=== PATIENT | male | born 1960 | race Caucasian/White ===

== ENCOUNTER 2017-11-02 02:43 | Outpatient (CLI) | payer OTHER | END 2017-11-02 02:44 | disposition home or self-care (01) | LOC: BICMRI 02:43 | PROVIDERS: ATTEND Orthopaedic Surgery | DX: M25.511 Pain in right shoulder (principal); M75.101 Unspecified rotator cuff tear or rupture of right shoulder, not specified as traumatic ==

== ENCOUNTER 2019-10-20 13:39 | Outpatient (CLI) | payer OTHER ==
--- NOTE | 2019-10-20 14:11 | RAD ---
Exam:3 views left shoulder HISTORY: Pain COMPARISON: None FINDINGS: Glenohumeral joint space is preserved. No fracture or dislocation. Minimal sclerosis of the greater tuberosity. IMPRESSION: Minimal sclerosis the greater tuberosity. Correlate for rotator cuff tendinopathy.
--- NOTE | 2019-10-20 14:12 | RAD ---
Exam:Right shoulder 3 views HISTORY: Pain COMPARISON: None FINDINGS: Glenohumeral joint space is preserved. No fracture or dislocation. There is mild irregularity involving the inferior bony glenoid. Sclerosis of the greater tuberosity. IMPRESSION: Degenerative changes involving the bony glenoid and greater tuberosity. Correlate clinica lly.
== END 2019-10-20 13:40 | disposition home or self-care (01) ==
LOC: BICRAD 13:39
PROVIDERS: ATTEND Internal Medicine Rheumatology
DX: M25.511 Pain in right shoulder (principal); M25.512 Pain in left shoulder; M19.011 Primary osteoarthritis, right shoulder; M25.812 Other specified joint disorders, left shoulder

== ENCOUNTER 2020-05-07 06:32 | Outpatient (CLI) | payer OTHER ==
[2020-05-07 14:17] LABS: #Eosinphils 0.3 thou/uL (0.0-0.7); #Lymphocytes 1.9 thou/uL (1.20-3.40); #Monocytes 0.7 thou/uL (0.11-0.59); %Basophils 0.4 % (0.0-1.0); %Eosinophils 3.3 % (0.0-10.0); %Lymphocytes 23.7 % (21.0-51.0); %Monocytes 8.4 % (0.0-10.0); %Neutrophils 64.1 % (42.0-75.0); Hemoglobin 14.7 g/dL (14.0-18.0); Mean Corpuscular HGB CONC 33.5 g/dL (32.0-36.0); Mean Corpuscular Hemoglobin 32.2 pg (27.0-31.0); Mean Corpuscular Volume 95.9 fL (78.0-98.0); Mean Platelet Volume 9.9 fL (7.4-10.4); Platelet Count 161 thou/uL (130-400); RBC Distribution Width 11.7 % (11.5-14.5); Red Blood Cell (RBC) Count 4.57 mill/uL (4.70-6.10); White Blood Cell (WBC) Count 7.9 thou/uL (4.8-10.8)
[2020-05-07 14:54] LABS: Anion Gap 12 mmol/L (10-20); BUN (Urea Nitrogen) 22 mg/dL (8.4-25.7); Calc. Creatinine Clearance 0 mL/min (70-130); Calcium 9.3 mg/dL (7.8-10.44); Carbon Dioxide 26 mmol/L (23-31); Chloride 105 mmol/L (98-107); Estimated GFR-MDRD 67; Glucose 89 mg/dL (80-115); Potassium 3.9 mmol/L (3.5-5.1); Sodium 139 mmol/L (136-145)
== END 2020-05-07 06:33 | disposition home or self-care (01) ==
LOC: LABBT 06:32
PROVIDERS: ATTEND Orthopaedic Surgery
DX: Z01.812 Encounter for preprocedural laboratory examination (principal); Z11.59 Encounter for screening for other viral diseases; M75.101 Unspecified rotator cuff tear or rupture of right shoulder, not specified as traumatic; M19.011 Primary osteoarthritis, right shoulder
CPT/HCPCS: 80048; 85025; 87635; U0003

== ENCOUNTER 2020-05-09 07:45 | Day surgery (SDC) | payer OTHER ==
[2020-05-07 09:32] VITALS: BMI 35.9
[2020-05-09] MEDS ORDERED: Midazolam HCl 2 mg/2 ml Vial ONE (08:12)
[2020-05-09] MEDS ORDERED: Fentanyl 100 MCG/2 ML VIAL ONE ×4 (08:12→12:50)
[2020-05-09] MEDS ORDERED: Levofloxacin 500 mg/D5W 100 ml Premix Bag ONE (08:46)
[2020-05-09] MEDS ORDERED: traMADol HCl 50 MG TAB PO PRN ×2 (10:10)
[2020-05-09] MEDS ORDERED: Ropivacaine 0.2% 550 ML 550 ML NERVE BLCK SCH (10:10)
[2020-05-09] MEDS ORDERED: Zolpidem Tartrate 5 MG TAB PO PRN (10:10)
[2020-05-09] MEDS ORDERED: Promethazine HCl 25 MG/ML VIAL IM PRN (10:10)
[2020-05-09] MEDS ORDERED: Ondansetron PF 4 MG/2 ML Vial IVP PRN (10:10)
[2020-05-09] MEDS ORDERED: HYDROcodone/Acetaminophen 5/325 mg Tablet PO PRN ×2 (10:10)
[2020-05-09] MEDS ORDERED: Fentanyl 100 MCG/2 ML VIAL SLOW IVP PRN (10:11)
[2020-05-09] MEDS ORDERED: Ketorolac Tromethamine 30 MG/ML VIAL IVP SCH (12:00)
[2020-05-09] MEDS ORDERED: Ropivacaine 0.2% HCl/PF (40 MG/20 ML VIAL) ONE (12:17)
[2020-05-09] MEDS ORDERED: Ropivacaine 0.5% HCl/PF (150 MG/30 ML VIAL) ONE (12:17)
[2020-05-09] MEDS ORDERED: Rocuronium Bromide 10 MG/ML (10ML VIAL) ONE (12:17)
[2020-05-09] MEDS ORDERED: Ondansetron PF 4 MG/2 ML Vial ONE (12:17)
[2020-05-09] MEDS ORDERED: Dexamethasone 20 MG/5 ML VIAL ONE (12:17)
[2020-05-09] MEDS ORDERED: Ketorolac Tromethamine 30 MG/ML VIAL ONE (12:17)
[2020-05-09] MEDS ORDERED: PROPOFOL 200 MG/20 ML VIAL ONE (12:17)
[2020-05-09] MEDS ORDERED: Bupivacaine HCl 0.5%/Epinephrine 1:200,000/PF 30 ml Vial ONE (12:17)
--- NOTE | 2020-05-09 13:39 | OP ---
DATE OF PROCEDURE: 05/09/2020 PREOPERATIVE DIAGNOSES: 1. Large supraspinatus and infraspinatus [id number] rotator cuff tear. 2. Osteoarthritis of acromioclavicular joint with acromial spurring. 3. Biceps tendinosis, subluxation, instability. POSTOPERATIVE DIAGNOSES: 1. Large supraspinatus and infraspinatus [id number] rotator cuff tear. 2. Osteoarthritis of acromioclavicular joint with acromial spurring. 3. Biceps tendinosis, subluxation, instability. PROCEDURES PERFORMED: Open acromioplasty, proximal biceps tenodesis, and primary open repair of rotator cuff tear to include supraspinatus and infraspinatus tendon with double-row technique. GEAR TOOTH LAPPING MACHINE OPERATOR: Layton Chao PA-C ANESTHESIA: General via endotracheal tube augmented with indwelling interscalene block on the right. COMPONENTS USED: Arthrex metallic 5.5 suture anchor x3 double arm with 8 x 23 biceps tenodesis screw and suture anchor x2 SwiveLock for double row. ESTIMATED BLOOD LOSS: 50 mL. DRAINS: None. SPECIMENS: None. COMPLICATIONS: None. COUNTS: Correct. INDICATION FOR SURGERY: Dinesh is a 59-year-old white male, who has had right shoulder pain implied with overhead use after he had heard an abrupt tear and pull in the right shoulder about a month and a half ago. After MRI was performed, he has elected to proceed with acromioplasty, biceps tenodesis, and primary rotator cuff repair as definitive treatment of his pain and weakness. DESCRIPTION OF PROCEDURE: After informed consent was obtained in the preop holding area, the patient was taken to the operative suite where he received preoperative antibiotics. General anesthesia was induced and LMA was placed and secured. Once this was accomplished, the patient was positioned appropriately in the modified beach-chair position. The right shoulder was then prepped and draped in the usual sterile fashion. Prior to incision, a time-out was called. All members of surgical team agreed upon site, surgeon, and patient. Once this was completed, we used a standard lateral approach to access the acromion as well as the supraspinatus and infraspinatus tendons. Bovie electrocautery was then used to remove the anterior deltoid and middle deltoid from the acromion and a mid deltoid split was then carried out. We identified the joint space and copious joint fluid was encountered medially. We then performed a complete bursectomy for visualization as well as an acromioplasty using the half-inch right osteotome and rongeur and rasping. After this was completed, we then identified the large rotator cuff tear, which was not retracted and still appeared to be in place and quite mobilized. We then used a series of rongeurs to complete the tear and freshened up the edges and remove cartilage at the interface of the chondral cartilage and old rotator cuff insertion working from front to back. We then turned our attention to reflection of the biceps tendon, which was cut inside the joint using curved Marroquin scissors and we then reflected open the biceps groove, used the pin with over-ream of 8 mm and the 8 mm biceps tenodesis screw provided the Arthrex to anchor the proximal biceps in the bicipital groove. We then after freshening up the rotator cuff insertion, placed 3 double-arm 5.5 metallic suture anchors. These were oversewn through the cuff using a Corey-Jones technique and tied over the top using tissue bridge and then we used in a double-row footprint to establish the secondary fixation laterally using the suture anchor SwiveLock x2. Primary repair was accomplished with vascular repair of the anterior deltoid and middle deltoid to the acromion and this was accomplished with #1 Ethibond with transosseous stitches through the acromion. This was augmented with a #5 Ethibond x1. We then used 0 Vicryl to run the deltoid muscular split. Subcutaneous layer was accomplished with inverted simple 0 Vicryl stitches and subcuticular layer was closed with 2-0 inverted simple Vicryl stitches. Stainless steel marcial were used to reapproximate the skin. Sterile dressing was applied. Procedure was terminated without complication. The patient was awakened in the operative suite, LMA was removed, and he was taken to recovery room in stable condition. A sling was placed and he will be on restrictions of the right. All counts were correct. Job ID: [id number]
[2020-05-09] MEDS ORDERED: Promethazine HCl 25 MG/ML VIAL ONE (14:19)
== END 2020-05-09 17:42 | disposition home or self-care (01) ==
LOC: SDC 07:45
PROVIDERS: ATTEND Orthopaedic Surgery
DX: S46.011A Strain of muscle(s) and tendon(s) of the rotator cuff of right shoulder, initial encounter (principal); M19.011 Primary osteoarthritis, right shoulder; M75.21 Bicipital tendinitis, right shoulder; S43.081A Other subluxation of right shoulder joint, initial encounter; M25.311 Other instability, right shoulder; G89.18 Other acute postprocedural pain; I10 Essential (primary) hypertension; E78.5 Hyperlipidemia, unspecified; N40.0 Benign prostatic hyperplasia without lower urinary tract symptoms; M17.0 Bilateral primary osteoarthritis of knee; J45.909 Unspecified asthma, uncomplicated; N40.1 Benign prostatic hyperplasia with lower urinary tract symptoms; N13.8 Other obstructive and reflux uropathy; R39.12 Poor urinary stream; Z79.899 Other long term (current) drug therapy; Z88.0 Allergy status to penicillin; Z88.5 Allergy status to narcotic agent; X50.9XXA Other and unspecified overexertion or strenuous movements or postures, initial encounter
CPT/HCPCS: A4306; C1713; J0670; J1100; J1885; J1956; J2250; J2405; J2550; J2704; J2795; J3010; J3370; J7030

== ENCOUNTER 2020-05-11 11:30 | Inpatient (IN) | payer OTHER ==
--- NOTE | 2020-05-11 11:57 | RAD ---
CHEST 1 VIEW PORTABLE: HISTORY: Dyspnea, shortness of breath. COMPARISON: 03/11/2015. FINDINGS: Less than optimal inspiration with mild vascular crowding and increased linear and interstitial natasha ngs bilaterally in the perihilar regions and right lower lung zone with mild right hemidiaphragm elev ation. These findings are nonspecific and could represent some minimal subsegmental atelectasis and less overall inspiratory effort. No confluent pneumonia, pleural effusion, or other acute process. IMPRESSION: Minimal increased linear and interstitial markings bilaterally including the right base with mild rig ht hemidiaphragm elevation and possibly minimal subsegmental atelectasis. No confluent pneumonia, ov ert edema, pleural effusion, or other acute process. POS: RRE
[2020-05-11 13:21] LABS: #Basophils 0.1 thou/uL (0.0-0.2); #Eosinphils 0.1 thou/uL (0.0-0.7); #Lymphocytes 1.9 thou/uL (1.20-3.40); #Monocytes 0.9 thou/uL (0.11-0.59); #Neutrophils 7.8 thou/uL (1.40-6.50); %Basophils 0.7 % (0.0-1.0); %Lymphocytes 17.7 % (21.0-51.0); %Neutrophils 72.7 % (42.0-75.0); Hemoglobin 13.1 g/dL (14.0-18.0); Mean Corpuscular HGB CONC 33.4 g/dL (32.0-36.0); Mean Corpuscular Hemoglobin 32.6 pg (27.0-31.0); Mean Corpuscular Volume 97.3 fL (78.0-98.0); Mean Platelet Volume 9.6 fL (7.4-10.4); Platelet Count 132 thou/uL (130-400); RBC Distribution Width 11.9 % (11.5-14.5); Red Blood Cell (RBC) Count 4.04 mill/uL (4.70-6.10); White Blood Cell (WBC) Count 10.8 thou/uL (4.8-10.8)
[2020-05-11 13:43] LABS: ALT (SGPT) 32 U/L (8-55); AST (SGOT) 20 U/L (5-34); Albumin 3.7 g/dL (3.4-4.8); Alkaline Phosphatase 55 U/L (40-110); Anion Gap 10 mmol/L (10-20); BUN (Urea Nitrogen) 10 mg/dL (8.4-25.7); Bilirubin, Total 0.9 mg/dL (0.2-1.2); Calc. Creatinine Clearance 0 mL/min (70-130); Carbon Dioxide 31 mmol/L (23-31); Chloride 103 mmol/L (98-107); Estimated GFR-MDRD Greater than 90; Globulin 2.7 g/dL (2.4-3.5); Glucose 107 mg/dL (80-115); Potassium 3.7 mmol/L (3.5-5.1); Protein, Total 6.4 g/dL (5.8-8.1); Sodium 140 mmol/L (136-145)
--- NOTE | 2020-05-11 14:23 | CT ---
Exam: CT angiogram of the chest HISTORY: Chest pain. Hypertension and asthma. COMPARISON: None TECHNIQUE: CT angiogram of the chest is performed in the axial plane. Three-dimensional reformatted i mages are submitted for interpretation FINDINGS: Mediastinum: No mass, lymphadenopathy or hematoma. HEART: Normal size. No significant pericardial fluid. There are coronary calcifications Aorta: No aneurysm or dissection Upper solid abdominal viscera: Hypoattenuation liver suggesting hepatic steatosis. Trachea and central bronchi: Patent Pleural spaces: No effusion Lung parenchyma: Diminished lung volumes. Consolidation of the right lower lobe may represent atelect asis, aspiration or pneumonia. Additional patchy groundglass opacities throughout the lung parenchyma may be due to edema. Linear densities in the right upper lobe may represent subsegmental a telectasis or scar. Pneumothorax: None Osseous structures: No lytic or blastic lesions Pulmonary arteries: Adequate contrast opacification pulmonary arterial system to the level of segment al arteries. No filling defect to suggest pulmonary embolism IMPRESSION: 1. No evidence of pulmonary artery embolism to the level of segmental arteries 2. Consolidation in the right lower lobe may represent atelectasis, pneumonia or aspiration. 3. Scattered nonspecific groundglass opacities. Correlate for edema. Possible scar or atelectasis in the right upper lobe.
[2020-05-11] MEDS ORDERED: Ondansetron PF 4 MG/2 ML Vial ONE (14:36)
[2020-05-11] MEDS ORDERED: HYDROcodone/Acetaminophen 10/325 mg Tablet ONE (14:57)
[2020-05-11] MEDS ORDERED: Cefepime 2 GM VIAL ONE (14:58)
[2020-05-11] MEDS ORDERED: Vancomycin 1.5 GRAM/300 ML BAG 1.5 GM in Premix Bag 1 BAG IVPB SCH (15:15)
[2020-05-11 16:44] VITALS: BMI 33.9
[2020-05-11] MEDS ORDERED: HYDROcodone/Acetaminophen 5/325 mg Tablet PO PRN (17:06)
[2020-05-11] MEDS: Lactinex Tablet PO SCH (17:15)
[2020-05-11] MEDS ORDERED: HYDROcodone/Acetaminophen 10/325 mg Tablet PO PRN (17:55)
[2020-05-11] MEDS: Mometasone 200 MCG/Formoterol 5 MCG 120 PUFF INHALER INH SCH (18:41)
--- NOTE | 2020-05-11 20:59 | HP ---
CHIEF COMPLAINT: Shortness of breath. HISTORY OF PRESENT ILLNESS: The patient is a 59-year-old male with past medical history of hypertension and asthma who recently underwent right rotator cuff repair 2 days ago. The patient tolerated the procedure well, and had an episode of nausea and vomiting in the recovery stage. The patient has improved afterwards and was discharged home. At home, the patient started to experience increasing shortness of breath starting yesterday. His family checked his oxygenation and was found to be as low at 76%. He was brought to the ER, where imaging studies revealed right lower lobe infiltrate. REVIEW OF SYSTEMS: Negative except as noted in HPI. PAST MEDICAL HISTORY: Hypertension, asthma, hypercholesterolemia. PAST SURGICAL HISTORY: Rotator cuff surgery, back surgery, knee surgery, and carpal tunnel surgery. PHYSICAL EXAMINATION: GENERAL: The patient is alert and oriented x3. HEENT: Head is normocephalic and atraumatic. Extraocular muscles are intact. NECK: Supple. CHEST: Auscultation reveals crackles at the right base. CARDIOVASCULAR: Revealed normal S1, S2. No murmurs, rubs, or gallops. Regular rate and rhythm. NEUROLOGICAL: Unremarkable. ASSESSMENT: 1. Acute hypoxic respiratory failure. 2. Aspiration pneumonia. PLAN: 1. The patient will be admitted to the medical floor. He will be started on IV clindamycin q.8 hours for aspiration pneumonia. Of note, the patient is allergic to penicillin. 2. We will supplement with probiotics to help decrease risk of C. diff. 3. Monitor the patient's response and oxygenation. Job ID: [id number] MTDD
[2020-05-11] MEDS: CeleCOXIB 100 MG CAP PO SCH (21:23)
[2020-05-11] MEDS: Tamsulosin HCl 0.4 MG CAP PO SCH (21:23)
[2020-05-11] MEDS: Clindamycin/D5W 900 MG in Premix Bag 1 BAG IVPB SCH (21:28)
[2020-05-11] MEDS: HYDROcodone/Acetaminophen 10/325 mg Tablet PO PRN (23:53)
[2020-05-12 05:40] LABS: #Basophils 0.1 thou/uL (0.0-0.2); #Eosinphils 0.3 thou/uL (0.0-0.7); #Lymphocytes 2.2 thou/uL (1.20-3.40); #Monocytes 0.8 thou/uL (0.11-0.59); #Neutrophils 5.6 thou/uL (1.40-6.50); %Basophils 0.6 % (0.0-1.0); %Eosinophils 3.3 % (0.0-10.0); %Lymphocytes 24.5 % (21.0-51.0); %Monocytes 8.4 % (0.0-10.0); %Neutrophils 63.1 % (42.0-75.0); Hemoglobin 12.5 g/dL (14.0-18.0); Mean Corpuscular HGB CONC 31.9 g/dL (32.0-36.0); Mean Corpuscular Hemoglobin 31.3 pg (27.0-31.0); Mean Corpuscular Volume 97.9 fL (78.0-98.0); Mean Platelet Volume 9.8 fL (7.4-10.4); Platelet Count 135 thou/uL (130-400); RBC Distribution Width 11.8 % (11.5-14.5); Red Blood Cell (RBC) Count 3.98 mill/uL (4.70-6.10); White Blood Cell (WBC) Count 8.9 thou/uL (4.8-10.8)
[2020-05-12] MEDS: HYDROcodone/Acetaminophen 10/325 mg Tablet PO PRN (05:45)
[2020-05-12] MEDS: Clindamycin/D5W 900 MG in Premix Bag 1 BAG IVPB SCH (05:45)
[2020-05-12 06:03] LABS: Anion Gap 12 mmol/L (10-20); BUN (Urea Nitrogen) 11 mg/dL (8.4-25.7); Calc. Creatinine Clearance 148 mL/min (70-130); Calcium 8.8 mg/dL (7.8-10.44); Carbon Dioxide 28 mmol/L (23-31); Chloride 101 mmol/L (98-107); Estimated GFR-MDRD Greater than 90; Glucose 106 mg/dL (80-115); Potassium 3.5 mmol/L (3.5-5.1); Sodium 137 mmol/L (136-145)
[2020-05-12] MEDS: Mometasone 200 MCG/Formoterol 5 MCG 120 PUFF INHALER INH SCH (07:04)
[2020-05-12 07:45] VITALS: BP 130/71; TEMP 97.5
[2020-05-12] MEDS: Lactinex Tablet PO SCH (08:00)
[2020-05-12] MEDS ORDERED: Ondansetron PF 4 MG/2 ML Vial IVP SCH (09:00)
[2020-05-12] MEDS ORDERED: Hydrochlorothiazide 25 MG TAB PO SCH (09:00)
[2020-05-12] MEDS ORDERED: Atorvastatin Calcium 10 MG TAB PO SCH (09:00)
[2020-05-12] MEDS ORDERED: Multivit, Therapeutic 1 TAB PO SCH (09:00)
[2020-05-12] MEDS ORDERED: Montelukast Sodium 10 mg Tablet PO SCH (09:00)
[2020-05-12] MEDS ORDERED: Enoxaparin Sodium 40 MG/0.4 ML SYRINGE SC SCH (09:00)
[2020-05-12] MEDS ORDERED: Losartan 25 MG TAB PO SCH (09:00)
[2020-05-12] MEDS ORDERED: Amlodipine 10 MG TAB PO SCH (09:00)
[2020-05-12] MEDS: CeleCOXIB 100 MG CAP PO SCH (10:00)
[2020-05-12] MEDS: Tamsulosin HCl 0.4 MG CAP PO SCH (10:00)
--- NOTE | 2020-05-13 07:19 | DIS ---
DATE OF ADMISSION: 05/11/2020 DATE OF DISCHARGE: 05/12/2020 DISCHARGE DIAGNOSES: 1. Acute respiratory failure with hypoxia. 2. Aspiration pneumonia. DISCHARGE MEDICATIONS: 1. Clindamycin 450 mg orally q.6 hours for 5 days. 2. Lactobacillus one tablet t.i.d. with meals for 7 days. 3. Amlodipine 5 mg orally daily. 4. Atorvastatin 10 mg orally daily. 5. Symbicort 160/4.5 mg inhaled twice daily. 6. Celebrex 200 mg orally twice daily as needed for pain. 7. Hydrochlorothiazide 25 mg orally daily. 8. Losartan 100 mg orally daily. 9. Singulair 10 mg orally daily. 10. Tamsulosin 0.4 mg orally twice daily. 11. Hydrocodone 10 q.6 hours as needed for pain. HISTORY OF PRESENT ILLNESS AND HOSPITAL COURSE: The patient is a 59-year-old male with past medical history of hypertension and asthma, who recently underwent a rotator cuff repair 2 days ago. He tolerated the procedure well, but had an episode of vomiting afterwards. He returned home and started experiencing shortness of breath on the day after the procedure. He returned to the ER, where a CT scan of the chest revealed right lower lobe pneumonia suggesting aspiration. He was also found to be hypoxic. Admitted to the hospital and started on IV clindamycin and supplemental oxygen. His symptoms improved within 24 hours and he was able to maintain his oxygen saturations on room air. The patient will be discharged on a course of clindamycin. Job ID: [id number]
== END 2020-05-12 11:01 | disposition home or self-care (01) | DRG 177 ==
LOC: ERS 11:30 → T4-A 16:28
PROVIDERS: ADMIT Internal Medicine; ATTEND Internal Medicine
DX: J69.0 Pneumonitis due to inhalation of food and vomit (principal); J96.01 Acute respiratory failure with hypoxia; I10 Essential (primary) hypertension; J45.909 Unspecified asthma, uncomplicated; E78.00 Pure hypercholesterolemia, unspecified; Z79.51 Long term (current) use of inhaled steroids; Z79.899 Other long term (current) drug therapy; Z88.0 Allergy status to penicillin
CPT/HCPCS: 36415; 71045; 71275; 80048; 80053; 83880; 84484; 85025; 93005; 96365; A4306; C1713; J0670; J0692; J1100; J1885; J1956; J2250; J2405; J2550; J2704; J2795; J3010; J3370; J3490; J7030

== ENCOUNTER 2023-09-16 11:04 | Outpatient (CLI) | payer OTHER ==
[2023-09-16 11:49] LABS: Bilirubin Neg (Negative); Blood, Urine Negative (Negative); Glucose, Urine (Dipstick) Normal (Negative); Ketone, Urine Negative (Negative); Leukocyte Negative (Negative); Nitrite Negative (Negative); Protein, Urine (Dipstick) Negative (Neg-Trace); Urobilinogen Normal mg/dL (Less than 2)
[2023-09-16 11:50] LABS: Clarity Clear (Clear)
[2023-09-16 11:55] LABS: Bacteria/HPF None Seen HPF (None Seen); RBC/HPF None Seen HPF (0-3); Squamous Epithelial 0-3 HPF (0-3); WBC/HPF None Seen HPF (0-3)
[2023-09-16 12:47] LABS: Hemoglobin 14.3 g/dL (13.5-17.5); Mean Corpuscular Volume 91.1 fl (81.2-95.1); Mean Platelet Volume 11.6 fl (7.4-10.4); Platelet Count 165 10x3/uL (150-450); RBC Distribution Width 12.6 % (11.5-14.5); Red Blood Cell (RBC) Count 4.61 10x6/uL (4.32-5.72); White Blood Cell (WBC) Count 6.8 10x3/uL (3.5-10.5)
[2023-09-16 12:54] LABS: PTT 26.1 sec (22.0-33.0); Prothrombin Time 10.9 sec (9.5-12.1)
[2023-09-16 12:58] LABS: Anion Gap 14 mmol/L (10-20); BUN (Urea Nitrogen) 11 mg/dL (8.4-25.7); Calc. Creatinine Clearance 0 mL/min (70-130); Calcium 9.1 mg/dL (7.8-10.44); Carbon Dioxide 24 mmol/L (23-31); Chloride 106 mmol/L (98-107); Estimated GFR 77; Glucose 79 mg/dL (80-115); Potassium 3.5 mmol/L (3.5-5.1); Sodium 140 mmol/L (136-145)
== END 2023-09-16 11:05 | disposition home or self-care (01) ==
LOC: LABBT 11:04
PROVIDERS: ATTEND Urology
DX: Z01.818 Encounter for other preprocedural examination (principal); Z12.5 Encounter for screening for malignant neoplasm of prostate; I48.91 Unspecified atrial fibrillation; D30.3 Benign neoplasm of bladder; N40.1 Benign prostatic hyperplasia with lower urinary tract symptoms; R35.0 Frequency of micturition
CPT/HCPCS: 80048; 81001; 85027; 85610; 85730; 87086; 93005; 93010

== ENCOUNTER 2023-09-17 09:51 | Outpatient (CLI) | payer OTHER | END 2023-09-17 09:52 | disposition home or self-care (01) | LOC: RAD 09:51 | PROVIDERS: ATTEND Otolaryngology Plastic Surgery within the Head & Neck | DX: R13.12 Dysphagia, oropharyngeal phase (principal); R63.30 Feeding difficulties, unspecified | CPT/HCPCS: 74220; 74230 ==

== ENCOUNTER 2023-09-22 06:11 | Day surgery (SDC) | payer OTHER ==
[2023-09-17 09:09] VITALS: BMI 36.9
[2023-09-22] MEDS ORDERED: LevoFLOXacin 500 mg/D5W 100 ML BAG ONE (06:23)
[2023-09-22] MEDS ORDERED: Midazolam HCl 2 mg/2 ml Vial ONE (07:07)
[2023-09-22] MEDS ORDERED: Lidocaine 1% PF 5 ML VIAL ONE (07:41)
[2023-09-22] MEDS ORDERED: PROPOFOL 200 MG/20 ML VIAL ONE (07:41)
[2023-09-22] MEDS ORDERED: fentaNYL 50 mcg/mL 1 mL Vial ONE ×4 (08:23→09:14)
[2023-09-22] MEDS ORDERED: Hyoscyamine SL 0.125 MG TAB ONE (08:25)
[2023-09-22] MEDS ORDERED: Meperidine HCl/PF 25 MG/ML VIAL ONE (09:34)
[2023-09-22] MEDS ORDERED: Oxybutynin 5 MG TAB ONE (14:43)
[2023-09-22] MEDS ORDERED: HYDROcodone/Acetaminophen 5/325 mg Tablet ONE (14:43)
[2023-09-22] MEDS ORDERED: Phenazopyridine HCl 100 MG TAB ONE (14:43)
== END 2023-09-22 15:45 | disposition home or self-care (01) ==
LOC: SDC 06:11
PROVIDERS: ATTEND Urology
PROC: 0T7D8DZ Dilation of Urethra with Intraluminal Device, Via Natural or Artificial Opening Endoscopic (ICD-10-PCS; principal; 2023-09-22)
DX: N40.0 Benign prostatic hyperplasia without lower urinary tract symptoms (principal)
CPT/HCPCS: C1747; J1956; J2175; J2250; J2704; J3010; L8699

== ENCOUNTER 2025-08-28 12:11 | Observation (INO) | payer OTHER ==
[2025-08-28 12:26] LABS: #Basophils Less than 0.03 10x3/uL (0.0-0.2); #Eosinophils 0.07 10x3/uL (0.0-0.7); #Monocytes 1.04 10x3/uL (0.11-0.59); #Neutrophils 5.12 10x3/uL (1.40-6.50); %Basophils 0.2 % (0.0-1.0); %Eosinophils 0.8 % (0.0-10.0); %Lymphocytes 25.7 % (21.0-51.0); %Monocytes 12.4 % (0.0-10.0); %Neutrophils 60.8 % (42.0-75.0); Hematocrit 39.9 % (42.0-52.0); Hemoglobin 13.3 g/dL (14.0-18.0); Mean Corpuscular Hemoglobin 30.7 pg (27.0-31.0); Mean Corpuscular Volume 92.1 fL (78.0-98.0); Platelet Count 206 10x3/uL (130-400); Red Blood Cell (RBC) Count 4.33 mill/uL (4.70-6.10); White Blood Cell (WBC) Count 8.42 10x3/uL (4.8-10.8)
[2025-08-28] MEDS ORDERED: Ondansetron PF 4 MG/2 ML Vial ONE (12:41)
[2025-08-28 12:42] LABS: INR-International Normal Ratio 1.0; PTT 28.1 sec (22.9-36.1); Prothrombin Time 13.7 sec (12.0-14.7)
[2025-08-28 12:46] LABS: Anion Gap 16 mmol/L (10-20); Chloride 99 mmol/L (98-107); Potassium 3.1 mmol/L (3.5-5.1); Sodium 136 mmol/L (136-145)
[2025-08-28 13:04] LABS: ALT (SGPT) 27 U/L (Less than 45); AST (SGOT) 33 U/L (11-34); Albumin 3.6 g/dL (3.1-4.5); Alkaline Phosphatase 72 U/L (40-110); BUN (Urea Nitrogen) 18 mg/dL (8.4-25.7); Bilirubin, Total 1.6 mg/dL (0.3-1.2); Calc. Creatinine Clearance 0 mL/min (70-130); Calcium 9.5 mg/dL (7.8-10.44); Carbon Dioxide 24 mmol/L (23-31); Globulin 2.8 g/dL (2.4-3.5); Glucose 118 mg/dL (80-115); Magnesium 2.1 mg/dL (1.6-2.6)
[2025-08-28] MEDS ORDERED: Iopamidol-370 76% 500 ML MDV (1 ML CHARGE) ONE (13:21)
[2025-08-28] MEDS ORDERED: Communication Order-Pharmacy FS SCH (17:08)
[2025-08-28] MEDS ORDERED: Ondansetron PF 4 MG/2 ML Vial IVP PRN (17:08)
[2025-08-28 18:48] LABS: Hematocrit 38.1 % (42.0-52.0); Hemoglobin 12.8 g/dL (14.0-18.0); Platelet Count 183 10x3/uL (130-400)
[2025-08-28 19:30] VITALS: BMI 32.9
[2025-08-28] MEDS: Acetaminophen 325 MG TAB PO PRN (21:55)
[2025-08-29 05:56] LABS: #Basophils 0.03 10x3/uL (0.0-0.2); #Eosinophils 0.07 10x3/uL (0.0-0.7); #Monocytes 0.69 10x3/uL (0.11-0.59); #Neutrophils 3.73 10x3/uL (1.40-6.50); %Basophils 0.5 % (0.0-1.0); %Eosinophils 1.1 % (0.0-10.0); %Lymphocytes 29.5 % (21.0-51.0); %Monocytes 10.7 % (0.0-10.0); %Neutrophils 58.0 % (42.0-75.0); Hematocrit 37.6 % (42.0-52.0); Hemoglobin 12.0 g/dL (14.0-18.0); Mean Corpuscular Hemoglobin 31.2 pg (27.0-31.0); Mean Corpuscular Volume 97.7 fL (78.0-98.0); Platelet Count 166 10x3/uL (130-400); Red Blood Cell (RBC) Count 3.85 mill/uL (4.70-6.10); White Blood Cell (WBC) Count 6.43 10x3/uL (4.8-10.8)
[2025-08-29 06:11] LABS: Anion Gap 11 mmol/L (10-20); BUN (Urea Nitrogen) 17 mg/dL (8.4-25.7); Calc. Creatinine Clearance 110 mL/min (70-130); Calcium 8.9 mg/dL (7.8-10.44); Carbon Dioxide 29 mmol/L (23-31); Cardiac Risk 2.4 (Less than 4.5); Chloride 105 mmol/L (98-107); Cholesterol 84 mg/dl (< 200 Desired); Glucose 94 mg/dL (80-115); HDL Cholesterol 35 mg/dL (>60 Neg Risk); LDL Cholesterol, Calculated 33 mg/dL; Potassium 3.3 mmol/L (3.5-5.1); Sodium 142 mmol/L (136-145); Triglycerides 79 mg/dL (Less than 150)
[2025-08-29 11:27] VITALS: TEMP 98.2
[2025-08-29] MEDS ORDERED: Lidocaine 1% w/Epinephrine 1:100K 20 ML VIAL ONE (11:54)
[2025-08-29 12:59] VITALS: BP 148/70
== END 2025-08-29 15:27 | disposition home or self-care (01) ==
LOC: ERS 12:11 → OBS 16:41
PROVIDERS: ADMIT Internal Medicine; ATTEND Internal Medicine
DX: R55 Syncope and collapse (principal); I10 Essential (primary) hypertension; I48.0 Paroxysmal atrial fibrillation; E78.00 Pure hypercholesterolemia, unspecified; E87.6 Hypokalemia; G45.0 Vertebro-basilar artery syndrome; N40.0 Benign prostatic hyperplasia without lower urinary tract symptoms; F17.200 Nicotine dependence, unspecified, uncomplicated; Z86.73 Personal history of transient ischemic attack (TIA), and cerebral infarction without residual deficits; Z88.5 Allergy status to narcotic agent; Z88.0 Allergy status to penicillin; Z91.018 Allergy to other foods; Z79.82 Long term (current) use of aspirin; Z79.01 Long term (current) use of anticoagulants; Z79.899 Other long term (current) drug therapy
CPT/HCPCS: 33285; 36415; 36416; 70450; 70496; 70498; 70551; 76014; 80048; 80061; 83735; 83880; 84443; 84484; 85025; 93005; 96361; 96372; 96374; C1764; G0378; J1650; Q9967

== ENCOUNTER 2025-10-19 09:29 | Day surgery (SDC) | payer OTHER ==
[2025-10-18 09:14] VITALS: BMI 32.9
[2025-10-19 11:27] LABS: #Basophils 0.03 10x3/uL (0.0-0.2); #Eosinophils 0.09 10x3/uL (0.0-0.7); #Monocytes 0.57 10x3/uL (0.11-0.59); #Neutrophils 3.89 10x3/uL (1.40-6.50); %Basophils 0.5 % (0.0-1.0); %Eosinophils 1.5 % (0.0-10.0); %Lymphocytes 23.4 % (21.0-51.0); %Monocytes 9.5 % (0.0-10.0); %Neutrophils 64.9 % (42.0-75.0); Hematocrit 39.3 % (42.0-52.0); Hemoglobin 13.0 g/dL (14.0-18.0); Mean Corpuscular Hemoglobin 31.7 pg (27.0-31.0); Mean Corpuscular Volume 95.9 fL (78.0-98.0); Platelet Count 160 10x3/uL (130-400); Red Blood Cell (RBC) Count 4.10 mill/uL (4.70-6.10); White Blood Cell (WBC) Count 5.99 10x3/uL (4.8-10.8)
[2025-10-19 11:43] LABS: ALT (SGPT) 30 U/L (Less than 45); AST (SGOT) 29 U/L (11-34); Albumin 3.7 g/dL (3.1-4.5); Alkaline Phosphatase 76 U/L (40-110); Anion Gap 10 mmol/L (10-20); BUN (Urea Nitrogen) 20 mg/dL (8.4-25.7); Bilirubin, Total 1.0 mg/dL (0.3-1.2); Calc. Creatinine Clearance 106 mL/min (70-130); Calcium 8.9 mg/dL (7.8-10.44); Carbon Dioxide 25 mmol/L (23-31); Chloride 106 mmol/L (98-107); Globulin 2.3 g/dL (2.4-3.5); Glucose 106 mg/dL (80-115); Potassium 4.4 mmol/L (3.5-5.1); Sodium 137 mmol/L (136-145)
[2025-10-19] MEDS ORDERED: Iopamidol 370 76% 100 ML VIAL ONE (15:04)
== END 2025-10-19 18:45 | disposition home or self-care (01) ==
LOC: SDC 09:29
PROVIDERS: ATTEND Internal Medicine Cardiovascular Disease
PROC: 4A023N8 Measurement of Cardiac Sampling and Pressure, Bilateral, Percutaneous Approach (ICD-10-PCS; principal; 2025-10-19)
DX: R94.39 Abnormal result of other cardiovascular function study (principal); R55 Syncope and collapse; I10 Essential (primary) hypertension; E78.00 Pure hypercholesterolemia, unspecified; Z88.0 Allergy status to penicillin; Z88.5 Allergy status to narcotic agent; Z91.018 Allergy to other foods; Z79.82 Long term (current) use of aspirin; Z79.899 Other long term (current) drug therapy
CPT/HCPCS: 80053; 85025; 93460; 99152; 99153; C1751; C1769; C1887; C1894; J0153; J1644; J2003; J2250; J3010; Q9967